=== PATIENT | male | born 1950 | race African-American/Black ===

== ENCOUNTER 2017-01-28 16:22 | Emergency (ER) | payer OTHER ==
[~2017-01-28] VITALS: Ht 177.8 cm; Wt 90.7 kg
--- NOTE | 2017-01-28 16:30 | NUR ---
PT BIBRA FROM HOME TO ER BED 11. C/O GENERALIZED WEAKNESS X TODAY. 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 PT HAD A KIDNEY TRANSPLANT OVER A WEEK AGO. DENIES CHEST PAIN. PT IS AAO, PLACED ON MONITOR. AWAITING MD HICKS.
--- NOTE | 2017-01-28 16:45 | NUR ---
DR MEDINA AT BEDSIDE FOR EVAL.
[2017-01-28] MEDS ORDERED: IV NS 0.9% 1,000 ML BAG IV ONE ×2 (17:00→19:30)
[2017-01-28] MEDS ORDERED: IV SET PRIMARY PUMP SET 1 EA INFUS.SET MC ONE ×3 (17:00→19:02)
[2017-01-28] MEDS ORDERED: IV NS 0.9% 1,000 ML ONE ×2 (17:00→19:47)
--- NOTE | 2017-01-28 17:00 | NUR ---
IV LINE STARTED BLOOD DRAWN AND SENT TO LAB.
--- NOTE | 2017-01-28 17:04 | NUR ---
radiology at bedside for chest xray.
[2017-01-28 17:06] LABS: BASOPHILS # (AUTO) 0.1 /CMM (0.0-0.2); BASOPHILS % (AUTO) 2.1 % (0.0-2.0); EOSINOPHILS % (AUTO) 0.3 % (0.0-6.0); HEMATOCRIT 34 % (39-51); LYMPHOCYTES # (AUTO) 0.7 /CMM (0.8-4.8); LYMPHOCYTES % (AUTO) 10.8 % (20.0-44.0); MEAN CORPUSCULAR HEMOGLOBIN 31 PG (26.0-33.0); MEAN CORPUSCULAR HGB CONC 33 g/dl (31.0-36.0); MEAN CORPUSCULAR VOLUME 96 fL (80-96); MONOCYTES # (AUTO) 0.3 /CMM (0.1-1.30); MONOCYTES % (AUTO) 4.3 % (2.0-12.0); NEUTROPHILS # (AUTO) 5.3 /CMM (1.8-8.9); NEUTROPHILS % (AUTO) 82.5 % (43.0-81.0); PLATELET COUNT (AUTO) 149 /CMM (150-450); RDW COEFFICIENT OF VARIATION 12.3 (11.5-15.0); RED BLOOD CELL COUNT(AUTO) 3.52 MIL/uL (4.5-6.0); WHITE BLOOD COUNT (AUTO) 6.4 K/uL (4.3-11.0)
--- NOTE | 2017-01-28 17:17 | NUR ---
dr mckeon at bedside for eval.
[2017-01-28 17:21] LABS: INR 1.11 (0.87-1.13); PROTHROMBIN TIME 11.6 SECS (9.5-12.7)
[2017-01-28 17:23] LABS: ALBUMIN 2.9 g/dL (3.4-5.0); BILIRUBIN,DIRECT 0.3 mg/dL (0.0-0.2); BILIRUBIN,TOTAL 0.7 mg/dL (0.2-1.0); POTASSIUM 3.8 mmol/L (3.5-5.1)
[2017-01-28 17:25] LABS: TROPONIN I 0.18 ng/mL (0.00-0.056)
[2017-01-28 17:27] LABS: CREATININE 8.1 mg/dL (0.6-1.3)
[2017-01-28 17:42] LABS: LACTIC ACID 1.2 mmol/L (0.4-2.0)
--- NOTE | 2017-01-28 17:48 | NUR ---
CALLED [facility] TRANSFER LINE, , GOT TRANSFERRED TO [phone] (KIDNEY TRANSPLANT LINE), SPOKE WITH RYDER, PRESENTED PT, SAID THEY WILL CALL US BACK
[2017-01-28] MEDS ORDERED: Magnesium 1GM/D5W 100ML PREMIX 200 ML IV ONE (17:57)
[2017-01-28] MEDS ORDERED: ASPIRIN 81 MG TAB.CHEW ONE (17:57)
[2017-01-28] MEDS ORDERED: ASPIRIN 81 MG TAB.CHEW PO ONE (18:00)
[2017-01-28] MEDS ORDERED: Magnesium 1GM/D5W 100ML PREMIX 100 ML IV SCH (18:00)
--- NOTE | 2017-01-28 18:24 | NUR ---
CALLED [facility] TRANSFER LINE, , NO ANSWER, LEFT MESSAGE ON VOICEMAIL
--- NOTE | 2017-01-28 18:33 | NUR ---
RECIEVED CALL FROM EUN AT [facility] TRANSFER LINE, SHE SAID SHE TO FAX HER A FACESHEET AND SHE WILL CALL ME BACK WITH A BED, FAXED FACESHEET TO [phone]
--- NOTE | 2017-01-28 19:11 | NUR ---
CALLED TRANSFER CENTER TO FOLLOW UP WITH TRANSFER, SPOKE WITH BRENNAN, SHE SAID SHE IS STILL WAITING FOR A BED AND WILL CALL ME WHEN SHE HAS ONE
--- NOTE | 2017-01-28 19:46 | NUR ---
[facility] -- CALLED TRANSPORT PLACED ON WILL CALL WITH VINAY
[2017-01-28] MEDS ORDERED: IV SET PRIMARY 1 EA INFUS.SET MC ONE (19:47)
--- NOTE | 2017-01-28 19:53 | NUR ---
RECEIVED CALL FROM BRENNAN AT [facility] TRANSFER [facility], PT IS ACCEPTED AT [facility]: [address], [address], GOING TO ROOM 6113, [address], NUMBER FOR REPORT IS [phone], ACCEPTED BY . WILL CALL AMBULANCE FOR TRANSPORT
--- NOTE | 2017-01-28 19:59 | NUR ---
CALLED [facility] FOR TRANSPORT TO [facility], ETA 45 MIN
--- NOTE | 2017-01-28 20:32 | NUR ---
REPORT GIVEN TO RICHIE. PT AWAITING TRANSFER.
[2017-01-28 20:55] VITALS: BP 107/43
--- NOTE | 2017-01-28 21:16 | NUR ---
TRANSFERED TO [facility] IN STABLE CONDITION.
== END 2017-01-28 21:23 | disposition short-term general hospital (02) ==
LOC: ER 16:23
DX: N18.6 End stage renal disease (principal); I45.81 Long QT syndrome; D64.9 Anemia, unspecified; R79.89 Other specified abnormal findings of blood chemistry; I95.9 Hypotension, unspecified; N19 Unspecified kidney failure; G93.40 Encephalopathy, unspecified
CPT/HCPCS: 36569; 71010; 80048; 80076; 83605; 84484; 85025; 85730; 87040 ×2; 93005; 96361; 96365; 96366; 99291; A4606; J3475; J7030 ×2; 36415; Z7610